=== PATIENT | male | born 1990 | race Caucasian/White ===

== ENCOUNTER 2019-02-02 12:46 | Emergency (ER) | payer MEDICAID, OTHER ==
[2019-02-02] MEDS: ACETAMINOPHEN 325 MG TAB PO (13:31)
[2019-02-02] MEDS: CEPHALEXIN 500 MG CAP PO (13:31)
== END 2019-02-02 14:22 | disposition home or self-care (01) ==
LOC: FTE 12:46
DX: K04.7 Periapical abscess without sinus (principal)
CPT/HCPCS: 99283; Z7502